=== PATIENT | female | born 1965 | race Caucasian/White ===

== ENCOUNTER 2025-01-30 01:32 | Inpatient (IN) | payer OTHER, SELFPAY ==
[2025-01-29 19:25] VITALS: BP 149/87
[2025-01-29 19:51] LABS: % Basophils 0.3 % (0-2); % Eosinophils 0.1 % (0-6); % Immature Granulocytes 0.5 % (0-0.5); % Monocytes 5.3 % (1.7-9.3); % Neutrophils 79.8 % (42.2-75.2); Absolute Immature Granulocytes 0.1 10^3/uL (0-0.05); Absolute Lymphocytes 1.8 10^3/uL (1.2-3.4); Absolute Monocytes 0.7 10^3/uL (0.1-0.6); Absolute Neutrophils 10.2 10^3/uL (1.4-6.5); Hematocrit 36.1 % (37.0-47.0); Hemoglobin 12.4 g/dL (12.0-16.0); Mean Corp Hgb Conc. 34.3 g/dL (33.0-37.0); Mean Corpuscular Hgb 29.9 pg (27.0-31.0); Mean Platelet Volume 10.1 fL (7.4-10.4); Nucleated Red Blood Cells % 0 %; Platelet Count 211 10^3/uL (130-400); Red Blood Cell Count 4.15 10^6/uL (4.20-5.40); Red Cell Dist. Width 12.1 % (11.5-14.5); White Blood Cell Count 12.8 10^3/uL (4.8-10.8)
[2025-01-29 20:00] LABS: Urine Albumin Negative (Neg - Trace); Urine Bilirubin Negative (Negative); Urine Character Clear (Clear); Urine Glucose Negative (Negative); Urine Ketone Negative (Negative); Urine Leukocyte Negative (Negative); Urine Nitrite Negative (Negative); Urine Occult Blood Negative (Negative); Urine Urobilinogen Negative (Neg - 1+)
[2025-01-29 20:03] LABS: Urine Color Straw
[2025-01-29 20:08] LABS: ALT (SGPT) 17 U/L (0-35); AST (SGOT) 23 U/L (14-36); Albumin 4.5 g/dl (3.5-5.0); Alkaline Phosphatase 88 U/L (38-126); Blood Urea Nitrogen 10 mg/dl (7-17); Calcium 9.2 mg/dl (8.4-10.2); Carbon Dioxide 23 mmol/L (22-30); Chloride 103 mmol/L (98-107); Glucose 129 mg/dl (70-99); Potassium 4.6 mmol/L (3.5-5.1); Sodium 135 mmol/L (135-145); Total Bilirubin 0.8 mg/dl (0.2-1.3); Total Protein 7.2 g/dl (6.3-8.2); eGFR > 60.00
[2025-01-29 20:10] LABS: Lipase 39 U/L (23-300)
[2025-01-29 21:35] VITALS: BP 141/92
[2025-01-29 21:36] VITALS: BP 141/92
[2025-01-29 21:54] LABS: Lactic Acid 1.6 mmol/L (0.7-2.0)
[2025-01-29 22:00] VITALS: BP 132/87
--- NOTE | 2025-01-29 22:18 | ED.GENMED ---
History of Present Illness
General
Chief Complaint: Abdominal Pain
Source: patient
Exam Limitations: none
Time Seen by Provider: 01/29/25 22:05
Nursing documentation reviewed up to this point in time: agreed with
History of Present Illness
History of Present Illness:
59-year-old female presents the emergency department complaining of left lower quadrant abdominal pain since last night. She was seen at urgent care and sent to the emergency department.
Past History
Past History
ED Past Medical History: Psychiatric (Anxiety, depression)
ED Past Surgical History: Gynecological (Partial hysterectomy), Orthopedic (ACL, meniscus) and Other (Bunion)
Social History
Tobacco: Non-smoker
Alcohol: None
Drug: None
Personal: Partner
Living: with family
Review of Systems
Review of Systems
Allergies reviewed?: Yes
All Other Systems: Not applicable
Constitutional: Reports no symptoms
EENT: Reports no symptoms
Respiratory: Reports no symptoms
Cardiac: Reports no symptoms
ABD/GI: Reports abdominal pain
: Reports no symptoms
Musculoskeletal: Reports no symptoms
Skin: Reports no symptoms
Neurological: Reports no symptoms
Endocrine: Reports no symptoms
Hematologic/Lymphatic: Reports no symptoms
Psychiatric: Reports no symptoms
Phy Exam
Physical Exam
Physical Exam:
Physical Exam
General: Afebrile, appears uncomfortable
Neck: supple. no meningeal signs. normal posterior pharynx
Heart: s1/s2 regular rate and rhythm, no murmur. equal radial
pulses.
HEENT: Pupils equal round reactive to light, EOMI
Lungs: no acute respiratory distress. clear bilaterally
Abdomen: normal bowel sounds. Left lower quadrant tenderness. no CVAT
Neuro: alert and oriented. no focal neurological deficits
Skin: no rash
Psychiatric: well kept. interactive and cooperative
Extremities: no edema. no calf tenderness. negative homans. good distal pulses
Course
Orders/Labs/Results
Orders:
Orders
01/29/25 19:35
Complete Blood Count/With Diff Urgent
Comprehensive Metabolic Panel Urgent
Lipase Urgent
Urinalysis Reflex To Culture Urgent
Date Specimen was Collected: 01/29/25
Time Specimen was Collected: 19:30
01/29/25 20:43
CT Abd/pelvis W Iv Cont Urgent
Comment:
Reason For Exam: LLQ pain
01/29/25 21:32
Lactic Acid Urgent
01/29/25 22:17
IV Insert/Care/Rem.- Treatment PRN
Morphine Sulfate 4 mg IV NOW STA
Ondansetron Injectable [Zofran] 4 mg IV NOW STA
01/29/25 23:08
HYDROmorphone [Dilaudid] 0.5 mg IV NOW STA
01/30/25 00:10
LevoFLOXacin 750 MG/150 ML [Levaquin] 750 mg in 150 ml IV NOW
MetroNIDAZOLE 500 MG/100 ML [Flagyl 500 mg] 100 ml IV NOW
01/30/25 01:16
Admit/Transfer Patient As Directed
Co-Sign Provider:
Level of Care: Inpatient admission
Assign to:: Medical/Surgical
Physician / Group: Wojciech
Diagnosis: Diverticulitis
Reason for Hospitalization: Diverticulitis
Expected length of stay greater than two midnights?: Yes
ELOS- Estimated Length of Stay in days: 2
I certify the patient meets the requirements for IP care: Yes
PRN Pain Medication Management As Directed
May give lesser potent ordered pain med per pt: Yes
preference::
Protocol:: Medication orders for pain may be administered in a
manner that supports deferring to patient preference
when the pt is:
- Requesting an ordered lesser potent pain medication.
Least to most potent pain medications are defined
as: acetaminophen < NSAID < tramadol < opioids
(morphine, oxycodone, hydromorphone).
- Requesting a lesser dose of the same medication IF
ORDERED.
- Requesting a less intrusive route of administration
if both routes are prescribed by the provider (PO <
IV).
01/30/25 01:17
Code Status As Directed
Resuscitation Status: Full Code
01/30/25 02:29
0.9% Sodium Chloride 1000 ml [Nss] 1,000 ml IV 125 mls/hr
Acetaminophen [Tylenol] 650 mg PO Q4HPRN PRN
Albuterol Nebs [Ventolin Nebules] 2.5 mg INH R Q4HPRN PRN
Clonazepam [Klonopin] 1 mg PO HS PRN
HYDROmorphone [Dilaudid] 0.5 mg IV Q4HPRN PRN
Ketorolac [Toradol] 15 mg IV Q6HPRN PRN
01/30/25 02:29
Activity As Directed
Activity Level: Ambulate
I/O [Intake/ Output] As Directed
Frequency: Per unit guidelines
Pneumatic Compression Sleeves As Directed
Type: Knee high
Vital Signs As Directed
Frequency: Per unit guidelines
DX Deep Vein Thrombosis Video Routine
01/30/25 Breakfast
Clear Liquid
At Your Request: Full Participation
Does patient need a safe tray?: No
Basic Metabolic Panel IN AM
Complete Blood Count/No Diff IN AM
01/30/25 08:00
Bupropion(24Hr)Extended Releas [WELLBUTRIN XL (24 hour extended release)] 150 mg PO DAILY
Buspirone [Buspar] 10 mg PO BID
MetroNIDAZOLE 500 MG/100 ML [Flagyl 500 mg] 100 ml IV Q8H
Montelukast Sodium [Singulair] 10 mg PO DAILY
alprazolam See Dose Instructions PO DAILY
01/31/25 00:00
LevoFLOXacin 500 MG/100 ML [Levaquin] 500 mg in 100 ml IV Q24H
Abnormal Lab Results
01/29/25
19:35
WBC 12.8 H 10^3/uL
(4.8-10.8)
RBC 4.15 L 10^6/uL
(4.20-5.40)
Hct 36.1 L %
(37.0-47.0)
Abs Immat Gran (auto) 0.1 H 10^3/uL
(0-0.05)
Absolute Neuts (auto) 10.2 H 10^3/uL
(1.4-6.5)
Absolute Monos (auto) 0.7 H 10^3/uL
(0.1-0.6)
Neutrophils % 79.8 H %
(42.2-75.2)
Lymphocytes % 14.0 L %
(20.5-51.1)
Glucose 129 H mg/dl
(70-99)
01/29/25 19:35
01/29/25 19:35
Vital Signs
Initial and Last Documented VS:
Initial Vital Signs
Temp Pulse Resp BP Pulse Ox
98.4 F 87 16 149/87 99
01/29/25 19:25 01/29/25 19:25 01/29/25 19:25 01/29/25 19:25 01/29/25 19:25
Last Documented Vital Signs
Temp Pulse Resp BP Pulse Ox
98.4 F 83 18 141/92 99
01/29/25 19:25 01/29/25 21:36 01/29/25 21:36 01/29/25 21:36 01/29/25 21:36
MDM/Problems Addressed
Differential Diagnosis Includes:
Bowel obstruction, sigmoid diverticulitis
MDM/Problems Addressed:
59-year-old female with sigmoid diverticulitis, no perforation seen. Admit to hospitalist. Levaquin and Flagyl given.
*Radiology
Radiology exam reviewed: radiology read reviewed (CT abdomen pelvis shows sigmoid diverticulitis)
*Pulse Oximetry
Patient hypoxic: no
*Critical Care Note
Total Time (30-74mins, 75-104mins- exclusive of procedures): Not Applicable
Patient Management
Social determinants of health affecting care: Living situation and Strong social support
Discussion with other providers: Hospitalist
Escalation/DeEscalation of care consider admission/obs:
Admit indicated
ED Attending Note
-
Portions of this chart may have been created with voice recognition software.� Occasional wrong word or��sound alike� substitutions may have occurred due to the inherent limitations of voice recognition software.
Discharge Plan
Departure
Patient Disposition: Admit
Date of Disposition: 01/30/25
Time of Disposition: 00:13
Admit to: Med/Surg
Presentation/result/management discussed w/ accepting MD/DO: Hospitalist
Patient with high blood pressure during this ER visit?: Yes
Condition: Good
Discharge Problem:
Diverticulitis of sigmoid colon
Interventions
Interventions:
*Risk Screen - Suicide Last Done: 01/29/25 19:25
*General Assessment Last Done: 01/29/25 19:25
*Neglect/Abuse Screening Last Done: 01/29/25 19:25
BK-Hxatny-Ejwnazaaom Assessment Last Done: 01/29/25 21:39
[2025-01-29] MEDS: ZOFRAN 4 MG IV (22:24)
[2025-01-29] MEDS: MORPHINE SULFATE 4 MG IV (22:24)
[2025-01-29] MEDS: DILAUDID 0.5 MG IV (23:15)
[2025-01-29 23:18] VITALS: BP 124/78
[2025-01-30] MEDS: FLAGYL 500 MG 100 IV ×3 (00:33→16:32)
[2025-01-30] MEDS: LEVAQUIN 150 IV (00:33)
[2025-01-30 01:00] VITALS: BP 112/81
--- NOTE | 2025-01-30 01:20 | HPS.HSE ---
Family Physician
-
Family Physician: Tootie Hu MD
Chief Complaint
-
Abd Pain
History of Present Illness
Patient is a 59y F with PMH significant for anxiety who presents to ED complaining of abdominal pain. Patient states that she noted some mild LLQ abdominal pain last PM. This pain has steadily increased throughout the day today and become quite
severe. She reports shaking chills. No N/V/D. She does report recent constipation and notes general history of alternating constipation / diarrhea. Patient has no prior history of diverticulitis.
Medical History
Past Medical History
Past Medical History: Reports Other
Additional Past Medical History:
Anxiety
Exercise Induced Asthma
Past Surgical History: Reports Other
Additional Past Surgical History:
Uterine Prolapse Repair
Partial Hysterectomy
ACL Repair
Knee Arthroscopy
Bunionectomy
Social History
Tobacco: Non-smoker
Alcohol: Occasional
Drug: None
Family History
Family History: Not pertinent
Allergies / Home Medications
Allergies reflects when Allergies were last updated in [facility].
Home Medications with original date entered in [facility]
Allergy/Medication List:
Allergies
Allergy/AdvReac Type Severity Reaction Status Date / Time
latex Allergy Rash Verified 01/29/25 19:31
Penicillins Allergy Rash Verified 01/29/25 19:31
Sulfa (Sulfonamide Allergy Anaphylaxis Verified 01/29/25 19:31
Antibiotics)
Home Medications
albuterol sulfate 90 mcg/actuation aerosol inhaler 2 puff inhalation Q6H PRN SOB 01/30/25
alprazolam 0.5 mg tablet,extended release 24 hr 0.5 mg PO DAILY 01/30/25
bupropion HCl 150 mg 24 hr tablet, extended release (Wellbutrin XL) 150 mg PO DAILY 01/30/25
buspirone 10 mg tablet 10 mg PO BID 01/30/25
clonazepam 1 mg tablet 1 mg PO HS PRN Sleep 01/30/25
montelukast 10 mg tablet 10 mg PO DAILY 01/30/25
Review of Systems
-
History Source: Patient
A 12 point ROS was completed and negative except as noted: Yes
Constitutional: Reports Chills; Denies Fever
Respiratory: Denies Cough or Trouble Breathing
Cardiac: Denies Chest Pain or Palpitations
Abdomen/GI: Reports Abdominal Pain; Denies Nausea, Vomiting or Diarrhea
: Denies Dysuria or Frequency
Musculoskeletal: Denies Joint Pain or Edema
Neurological: Denies Dizzy or Headache
Physical Exam
Vital Signs
Vital Signs
Temp Pulse Resp BP Pulse Ox
98.4 F 83 18 141/92 99
01/29/25 19:25 01/29/25 21:36 01/29/25 21:36 01/29/25 21:36 01/29/25 21:36
Physical Exam
General: Other (59y F in mild distress due to abdominal pain.)
HEENT: Moist mucous membranes and PERRLA
Respiratory: Clear; No Wheezes, Rales or Rhonchi
Cardiac: S1/S2 and Regular Rhythm; No Murmur
GI: Soft, Non Distended, Normal Bowel Sounds and Other (Pos tenderness along lower abdomen - L > R.)
Musculoskeletal: No Clubbing, No Cyanosis and No Edema
Neuro: AO x 3
Laboratory Results
-
01/29/25 19:35
01/29/25 19:35
Laboratory Results
Lactic Acid 1.6 mmol/L (0.7-2.0) 01/29/25 21:32
Total Bilirubin 0.8 mg/dl (0.2-1.3) 01/29/25 19:35
AST 23 U/L (14-36) 01/29/25 19:35
ALT 17 U/L (0-35) 01/29/25 19:35
Alkaline Phosphatase 88 U/L (38-126) 01/29/25 19:35
Lipase 39 U/L (23-300) 01/29/25 19:35
Impression/Plan
-
A/P: Patient is a 59y F with PMH significant for anxiety who presents to ED complaining of abdominal pain.
Acute Sigmoid Diverticulitis
- Admit for further evaluation and treatment.
- Initial episode with severe inflammatory changes on CT scam
- Afebrile and no significant leukocytosis, etc.
- IV abx with levofloxacin / metronidazole.
- Pain control, IVFs, etc.
- Follow for clinical improvement.
- Clear liquids for now and advance as tolerated.
Generalized Anxiety
- Stable. Continue usual home med regimen.
Mild Intermittent Asthma
- Stable. Continue Singulair.
- Albuterol PRN.
DVT Prophylaxis: SCDs
Code Status: Full
[2025-01-30] MEDS: DILAUDID 0.5 MG IV (02:58)
[2025-01-30] MEDS: NSS 1000 IV ×2 (02:59→10:09)
[2025-01-30 06:37] LABS: Hematocrit 30.6 % (37.0-47.0); Hemoglobin 10.6 g/dL (12.0-16.0); Mean Corp Hgb Conc. 34.6 g/dL (33.0-37.0); Mean Corpuscular Hgb 29.8 pg (27.0-31.0); Mean Platelet Volume 10.1 fL (7.4-10.4); Platelet Count 166 10^3/uL (130-400); Red Blood Cell Count 3.56 10^6/uL (4.20-5.40); Red Cell Dist. Width 12.1 % (11.5-14.5); White Blood Cell Count 10.5 10^3/uL (4.8-10.8)
[2025-01-30 06:44] LABS: Blood Urea Nitrogen 9 mg/dl (7-17); Calcium 8.7 mg/dl (8.4-10.2); Carbon Dioxide 26 mmol/L (22-30); Chloride 107 mmol/L (98-107); Glucose 129 mg/dl (70-99); Potassium 3.7 mmol/L (3.5-5.1); Sodium 137 mmol/L (135-145); eGFR > 60.00
[2025-01-30 07:00] VITALS: BP 118/74; BMI 24.2
[2025-01-30] MEDS: TYLENOL 650 MG PO ×3 (07:55→20:42)
[2025-01-30] MEDS: WELLBUTRIN XL (24 hour extended release) 150 MG PO (08:20)
[2025-01-30] MEDS: SINGULAIR 10 MG PO (08:21)
--- NOTE | 2025-01-30 08:26 | EDRN ---
Pharmacy reminded to send AM meds
[2025-01-30] MEDS: BUSPAR 10 MG PO ×2 (08:54→19:37)
--- NOTE | 2025-01-30 08:55 | W.PN.HOSP.TC ---
Today's Communication/Plan
-
see bold
Assessment / Plan
Assessment / Plan
HPI: 59y F with PMH significant for anxiety who presents to ED complaining of abdominal pain.
Acute Sigmoid Diverticulitis
- Initial episode with severe inflammatory changes on CT scam
- Afebrile and no significant leukocytosis, etc.
- Continue supportive care, IVFs, IV levofloxacin / metronidazole.
- Tolerating clear liquids, advance to full liquids
Generalized Anxiety
- Stable. Continue usual home med regimen.
Mild Intermittent Asthma
- Stable. Continue Singulair.
- Albuterol PRN.
DVT Prophylaxis: Subcu Lovenox
Code Status: Full
Physical Exam
General: No acute distress
HEENT: Normocephalic, Atraumatic, EOMI, MMM
Respiratory: Clear to Auscultation bilaterally
Cardiac: Normal S1/S2, Regular Rate and Rhythm
GI: Soft, diffusely tender, mildly distended, normal Bowel Sounds
Extremities: No Clubbing, Cyanosis, or Edema
Neuro: Nonfocal/Grossly Intact
Anticipated Discharge: 24 - 48 hours
Subjective/Interval History
-
Date of Service: January 30, 2025
Patient reports improvement in her abdominal pain. Denies fever. No nausea, no vomiting, no diarrhea.
Objective Data
-
Labs:
Laboratory Results
01/30/25
06:00
WBC 10.5
Hgb 10.6 L
Hct 30.6 L
Plt Count 166 D
Sodium 137
Potassium 3.7
Chloride 107
Carbon Dioxide 26
BUN 9
Creatinine 0.8
Glucose 129 H
Calcium 8.7
Vital Signs:
Vital Signs
Temp Pulse Resp BP Pulse Ox
98.3 F 74 16 118/74 97
01/30/25 07:00 01/30/25 07:00 01/30/25 07:00 01/30/25 07:00 01/30/25 01:00
[2025-01-30] MEDS: TORADOL 15 MG IV (08:57)
--- NOTE | 2025-01-30 10:00 | EDRN ---
VO Do- decrease IV rate to 75 ml/ hr
--- NOTE | 2025-01-30 11:07 | CM ---
CM met with pt bedside
Pt resides with her SO/Marco in a 2SH with 2STE, full flight to 2nd floor
Pt is independent with her ADLs, denies use of ADs
Has an inhaler for use as needed
Works FT out of home, commute to [facility] daily
Denies financial insecurities
PCP- Tootie Hu
Rx- [facility]
Discharge Disposition- anticipate home no needs
[2025-01-30] MEDS: PROTONIX 40 MG PO (12:05)
[2025-01-30] MEDS: TUMS CHEWABLE TABLET 400 MG PO ×2 (13:18→19:37)
[2025-01-30 16:17] VITALS: BMI 23.5
--- NOTE | 2025-01-30 16:20 | PTCARENOTE ---
Received pt from ED via stretcher. AAOx3. Ambulated to bed independently. Pt c/o pain throughout abd. Assessed and oriented to room. Pt verbalized understanding of call kaminski. Call kaminski within close reach. Will continue to monitor.
[2025-01-30 16:25] VITALS: BP 113/67
[2025-01-30] MEDS: LOVENOX 40 MG SC (17:43)
[2025-01-30] MEDS: KLONOPIN 1 MG PO (22:35)
[2025-01-30 23:40] VITALS: BP 122/70
[2025-01-31] MEDS: FLAGYL 500 MG 100 IV ×3 (00:10→15:23)
[2025-01-31] MEDS: LEVAQUIN 100 IV ×2 (01:23→23:54)
[2025-01-31 08:05] VITALS: BP 121/72
[2025-01-31] MEDS: BUSPAR 10 MG PO ×2 (08:49→20:16)
[2025-01-31] MEDS: PROTONIX 40 MG PO (08:49)
[2025-01-31] MEDS: SINGULAIR 10 MG PO (08:49)
[2025-01-31] MEDS: WELLBUTRIN XL (24 hour extended release) 150 MG PO (08:49)
--- NOTE | 2025-01-31 08:51 | W.PN.HOSP.TC ---
Today's Communication/Plan
-
Continue IV antibiotics
Advance to low residue diet
Possible discharge tomorrow with clinical improvement
Assessment / Plan
Assessment / Plan
HPI: 59y F with PMH significant for anxiety who presents to ED complaining of abdominal pain.
Acute Sigmoid Diverticulitis
- Initial episode with severe inflammatory changes on CT scam
- Afebrile and no significant leukocytosis, etc.
- Continue IV levofloxacin / metronidazole.
- Tolerating full liquids, advance to low residue
Generalized Anxiety
- Stable. Continue usual home med regimen.
Mild Intermittent Asthma
- Stable. Continue Singulair.
- Albuterol PRN.
DVT Prophylaxis: Subcu Lovenox
Code Status: Full
Total time spent to see the patient on the floor, examine the patient, review data and lab results, discuss treatment plan with patient, nursing staff around 36 minutes.
Physical Exam
General: No acute distress
HEENT: Normocephalic, Atraumatic, EOMI, MMM
Respiratory: Clear to Auscultation bilaterally
Cardiac: Normal S1/S2, Regular Rate and Rhythm
GI: Soft, diffusely tender, mildly distended, normal Bowel Sounds
Extremities: No Clubbing, Cyanosis, or Edema
Neuro: Nonfocal/Grossly Intact
Anticipated Discharge: 24 - 48 hours
Subjective/Interval History
-
Date of Service: January 31, 2025
Patient reports feeling bloated. States her abdomen is diffusely sore, 3 out of 10 in intensity. Denies nausea, denies vomiting. She is passing gas and liquid stool. No fever, no chest pain, no shortness of breath.
Objective Data
-
Vital Signs:
Vital Signs
Temp Pulse Resp BP Pulse Ox
99.3 F 79 18 121/72 96
01/31/25 08:05 01/31/25 08:05 01/31/25 08:05 01/31/25 08:05 01/31/25 08:05
I&O
01/30/25 01/31/25 02/01/25
06:59 06:59 06:59
Intake Total 950 / 950
Balance 950 / 950
[2025-01-31] MEDS: NSS 1000 IV (08:53)
[2025-01-31] MEDS: MYLICON 80 MG PO ×2 (10:47→12:58)
[2025-01-31 15:10] VITALS: BP 113/70
[2025-01-31] MEDS: TORADOL 15 MG IV (15:44)
[2025-01-31] MEDS: TYLENOL 650 MG PO ×2 (16:57→21:07)
[2025-01-31] MEDS: LOVENOX SC (17:02)
--- NOTE | 2025-01-31 17:17 | PTCARENOTE ---
Addendum entered by Margy Fine RN 01/31/25 19:10:
patient reports frontal headache and abd belatedness with cramping. did tolerate some low residue diet, loose stool x1, PRN Mylicon and Toradol administered with some relief. PRN Tylenol administered for c/o headache, vss, will continue to monitor.
Original Note:
patient reports frontal headache and abd belatedness with cramping. did tolerate some low residue diet, no stools, PRN Mylicon and Toradol administered with some relief. PRN Tylenol administered for c/o headache, vss, will continue to monitor.
[2025-01-31] MEDS: KLONOPIN 1 MG PO (22:36)
[2025-01-31 23:00] VITALS: BP 117/75
[2025-02-01] MEDS: FLAGYL 500 MG 100 IV ×2 (01:05→08:09)
[2025-02-01 05:39] LABS: Hematocrit 29.6 % (37.0-47.0); Hemoglobin 10.1 g/dL (12.0-16.0); Mean Corp Hgb Conc. 34.1 g/dL (33.0-37.0); Mean Corpuscular Hgb 29.5 pg (27.0-31.0); Mean Corpuscular Volume 86.5 fL (81.0-99.0); Mean Platelet Volume 10.1 fL (7.4-10.4); Platelet Count 172 10^3/uL (130-400); Red Blood Cell Count 3.42 10^6/uL (4.20-5.40); Red Cell Dist. Width 12.3 % (11.5-14.5); White Blood Cell Count 5.8 10^3/uL (4.8-10.8)
[2025-02-01 05:52] LABS: Blood Urea Nitrogen 5 mg/dl (7-17); Calcium 8.6 mg/dl (8.4-10.2); Carbon Dioxide 27 mmol/L (22-30); Chloride 112 mmol/L (98-107); Estimated Creatinine Clearance 64 ml/min; Glucose 104 mg/dl (70-99); Magnesium 1.8 mg/dl (1.6-2.3); Phosphorus 3.7 mg/dl (2.5-4.5); Potassium 3.4 mmol/L (3.5-5.1); Sodium 143 mmol/L (135-145); eGFR > 60.00
[2025-02-01 07:46] VITALS: BP 120/82
[2025-02-01] MEDS: WELLBUTRIN XL (24 hour extended release) 150 MG PO (08:10)
[2025-02-01] MEDS: BUSPAR 10 MG PO (08:10)
[2025-02-01] MEDS: SINGULAIR 10 MG PO (08:10)
[2025-02-01] MEDS: PROTONIX 40 MG PO (08:10)
--- NOTE | 2025-02-01 09:11 | W.PN.HOSP.TC ---
Today's Communication/Plan
-
Discharge today
Assessment / Plan
Assessment / Plan
HPI: 59y F with PMH significant for anxiety who presents to ED complaining of abdominal pain.
Acute Sigmoid Diverticulitis
- Initial episode with severe inflammatory changes on CT scam
- Afebrile and no significant leukocytosis, etc.
- Resolving on IV levofloxacin / metronidazole.
- Tolerating low residue
- Medically stable for discharge on oral levofloxacin and Flagyl to complete a 7-day course
- Follow-up with PCP in 1 week
Hypokalemia
- Potassium 3.4 today, magnesium normal
- Will give potassium chloride 40 mEq p.o. x 1 prior to discharge
Generalized Anxiety
- Stable. Continue usual home med regimen.
Mild Intermittent Asthma
- Stable. Continue Singulair.
- Albuterol PRN.
DVT Prophylaxis: Subcu Lovenox
Code Status: Full
Physical Exam
General: No acute distress
HEENT: Normocephalic, Atraumatic, EOMI, MMM
Respiratory: Clear to Auscultation bilaterally
Cardiac: Normal S1/S2, Regular Rate and Rhythm
GI: Soft, nontender, mildly distended, normal Bowel Sounds
Extremities: No Clubbing, Cyanosis, or Edema
Neuro: Nonfocal/Grossly Intact
Anticipated Discharge: Today
Subjective/Interval History
-
Date of Service: February 01, 2025
Patient reports feeling better. Her abdominal pain resolved. She is tolerating her low residue diet. No fever, no vomiting. She is having a few liquid stools. No chest pain, no shortness of breath.
Objective Data
-
Labs:
Laboratory Results
02/01/25
05:14
WBC 5.8
Hgb 10.1 L
Hct 29.6 L
Plt Count 172
Sodium 143
Potassium 3.4 L
Chloride 112 H
Carbon Dioxide 27
BUN 5 L
Creatinine 0.7
Glucose 104 H
Calcium 8.6
Vital Signs:
Vital Signs
Temp Pulse Resp BP Pulse Ox
97.9 F 76 16 120/82 97
02/01/25 07:46 02/01/25 07:46 02/01/25 07:46 02/01/25 07:46 02/01/25 07:46
I&O
01/31/25 02/01/25 02/02/25
06:59 06:59 06:59
Intake Total 950 / 950 1600 / 1600 240 / 240
Balance 950 / 950 1600 / 1600 240 / 240
[2025-02-01] MEDS: KCL 40 MEQ PO (09:29)
--- NOTE | 2025-02-01 10:32 | W.DCSUMMARY ---
Discharge Summary
Discharge Data
Date of Admission: 01/30/25
Date of Discharge: 02/01/25
-
Pending Results: No
Hospital Course
Discharge diagnosis:
Acute sigmoid diverticulitis
Hypokalemia
Generalized anxiety
Mild intermittent asthma
CT abdomen and pelvis:
CT findings compatible with diverticulitis involving the sigmoid colon. There is severe stranding of the adjacent fat, suggesting severe inflammatory change. Small amount of presacral fluid. There is also thickening of the rectal wall which is
likely reactive.
No evidence for abscess. No evidence for free intraperitoneal air.
Bony degenerative changes as described. Anterior compression deformity of T12 with associated superior endplate Schmorl's node, and morphologically, this is most likely old, although there are no comparison exams. Please correlate with any localized
symptoms.
Hospital course:
59-year-old female with a past medical history of anxiety and asthma was admitted for acute sigmoid diverticulitis. Patient was treated with IV Flagyl and levofloxacin. After several days, her abdominal pain resolved. She tolerated a diet. She
had hypokalemia, this was repleted prior to discharge. She is medically stable for discharge on oral Flagyl and levofloxacin to complete a 7-day course. She needs to follow-up with her primary care doctor in 1 week.
Disposition: Home self-care
Discharge planning: Required 37 minutes
Discharge Plan
-
Patient Disposition: Home (Routine Discharge)
Discharge Diagnosis/Procedures: Acute sigmoid diverticulitis, hypokalemia
Condition: Good
Diet: Low Fiber
Activity: As tolerated
Driving Restrictions: As prior to admission
Activity Restrictions/Additional Instructions:
Please drink plenty of fluids, containing electrolytes.
Follow-up with your primary care doctor in 1 week.
Referrals:
Tootie Hu MD [Family Provider] - in one week
Prescriptions:
New
metronidazole 500 mg Tablet
500 mg PO Q8 5 Days Qty: 15 0RF
levofloxacin 750 mg Tablet
750 mg PO DAILY 5 Days Qty: 5 0RF
Continued
clonazepam 1 mg Tablet
1 mg PO HSPRN PRN (Reason: Sleep)
buspirone 10 mg Tablet
10 mg PO BID
montelukast 10 mg Tablet
10 mg PO DAILY
albuterol sulfate 90 mcg/actuation Hfa Aerosol Inhaler
2 puff INHALATION R Q6HPRN PRN (Reason: SOB)
alprazolam 0.5 mg Tablet Extended Release 24 Hr
0.5 mg PO DAILYPRN PRN (Reason: anxiety)
bupropion HCl [Wellbutrin XL] 150 mg Tablet Extended Release 24 Hr
150 mg PO DAILY
ibuprofen [Advil] 200 mg Tablet
200 mg PO Q6HPRN PRN (Reason: headaches)
Discharge Orders:
Discharge Patient (As Directed); Ordered 02/01/25
Ordered By: Larry Angulo
Discharge Date and Time
Discharge Date/Time: 02/01/25 15:02
Print Language: PORTUGUESE
--- NOTE | 2025-02-01 10:55 | CM ---
MD entered order for discharge.
Spoke with pt she said she is ready for discharge.She said that Jasbir will drive her home.
Offered VN she declined need.
PLAN Home no needs
[2025-02-01] MEDS: LEVAQUIN 750 MG PO (10:56)
[2025-02-01 14:57] VITALS: BP 127/83
== END 2025-02-01 15:02 | disposition home or self-care (01) | DRG 392 ==
LOC: 3 WEST ACU 01:32
PROVIDERS: Emergency Medicine; ADMITTING PHYSICIAN Hospitalist; ATTENDING PHYSICIAN Family Medicine; EMERGENCY PHYSICIAN Emergency Medicine; FAMILY PHYSICIAN Hospitalist
DX: K57.32 Diverticulitis of large intestine without perforation or abscess without bleeding (principal); F41.1 Generalized anxiety disorder; J45.20 Mild intermittent asthma, uncomplicated; E87.6 Hypokalemia; Z79.899 Other long term (current) drug therapy
CPT/HCPCS: 74177; 80048; 80053; 81003; 83605; 83690; 83735; 84100; 85025; 85027; 93005; Q9967

== ENCOUNTER → 2025-02-23 12:25 | Outpatient (REF) | payer OTHER, SELFPAY | LOC: WDC 12:25 | PROVIDERS: ATTENDING PHYSICIAN Hospitalist | DX: Z12.31 Encounter for screening mammogram for malignant neoplasm of breast (principal); Z12.39 Encounter for other screening for malignant neoplasm of breast | CPT/HCPCS: 77063; 77067 ==